=== PATIENT | female | born 1955 | race Caucasian/White ===

== ENCOUNTER → 2023-05-10 13:13 | Outpatient (CLI) | payer OTHER, SELFPAY ==
--- NOTE | 2023-05-10 13:16 | DI.RAD.S_ITS ---
PROCEDURE: XR ANKLE LT MIN 3V INDICATIONS: L ankle injury TECHNIQUE: 3 views of the ankle were acquired. COMPARISON: None. FINDINGS: Bones: There is a fracture of the lateral malleolus, at and below the syndesmosis. Soft tissues: Large tibiotalar joint effusion. Achilles tendon appears normal. IMPRESSION: Fracture of the medial malleolus. No unstable fracture features. Dictated by: Hong Arellano M.D. on 05/10/2023 at 14:48 Approved by: Hong Arellano M.D. on 05/10/2023 at 14:49
== END ==
PROVIDERS: Referring Provider Physician Assistant; Visit Provider Physician Assistant
DX: S82.62XA Displaced fracture of lateral malleolus of left fibula, initial encounter for closed fracture (principal); M25.572 Pain in left ankle and joints of left foot; X58.XXXA Exposure to other specified factors, initial encounter
CPT/HCPCS: 73610

== ENCOUNTER 2024-11-08 11:48 | Emergency (ER) | payer MEDICARE, OTHER, SELFPAY ==
[2024-11-08 12:08] VITALS: BP 186/86; PULSE 83; RESP 16; TEMP 36.4; O2SAT 98; BMI 23.1
--- NOTE | 2024-11-08 12:53 | DI.RAD.S_ITS ---
PROCEDURE: XR KNEE LT 3V INDICATIONS: swelling TECHNIQUE: 3 views of the knee were acquired. COMPARISON: None. FINDINGS: Bones: There is prior ACL reconstruction. Right knee alignment is anatomic. No fractures or dislocations. Moderate tricompartmental osteoarthritis is seen. No significant patellar subluxation. No suspicious bony lesions. Soft tissues: Moderate suprapatellar joint effusion. No suspicious soft tissue calcifications. IMPRESSION: Prior ACL reconstruction. Anatomic right knee alignment. No acute fracture or dislocation. Moderate tricompartmental osteoarthritis and moderate joint effusion. Dictated by: Natalio Olguin M.D. on 11/08/2024 at 12:19 Approved by: Natalio Olguin M.D. on 11/08/2024 at 12:20
--- NOTE | 2024-11-08 14:27 | ED_ITS ---
HPI - Extremity Injury (Lower) <Jennifer Cordero PA-C - Last Filed: 11/08/24 18:57> General Chief Complaint: Extremity Injury, Lower Stated Complaint: Bilateral Hip Pain, R Knee Pain Time Seen by Provider: 11/08/24 12:47 Source: patient Mode of arrival: Ambulatory History of Present Illness HPI Narrative: 69-year-old female here today for right knee pain and bilateral hip pain. States she has had the hip pain for several weeks but then 1 week ago her right knee started hurting a lot and has continued to get worse. She is normally very active and exercises or walks daily. She has been having difficulty sleeping due to the pain in her knee. She feels pain all the way around her knee but it is especially bothersome in the back of her knee and her upper calf. She recently had COVID around 1 month ago and she has concerns about a blood clot in her leg. She has no history of blood clots. She has had her ACL reconstructed on the right knee many years ago but otherwise does not have any chronic knee problems. States she has been taking ibuprofen 400 mg every 4 hours which does help somewhat but she needs to take it constantly for the pain. She has tried Voltaren gel in the past which did not help. She denies any fevers or chills. Pain is worse when trying to fully extend her knee. Related Data Home Medications ?Medication ?Instructions ?Recorded ?Confirmed ibuprofen 600 mg tablet 600 mg PO Q6H PRN 11/10/24 0 11/15/24 Previous Rx's ?Medication ?Instructions ?Recorded cefpodoxime 200 mg tablet 200 mg PO Q12H 10 days #20 t abs 11/14/24 oxycodone 5 mg tablet 5 mg PO Q6H PRN pain #120 ta bs 11/15/24 Allergies Allergy/AdvReac Type Severity Reaction Status Date / Time No Known Drug Allergies Allergy Unverified 11/15/24 15:40 Review of Systems <Jennifer Cordero PA-C - Last Filed: 11/08/24 18:57> Review of Systems ROS Unobtainable: All systems reviewed & are unremarkable except as noted in HPI and below Patient History <Jennifer Cordero PA-C - Last Filed: 11/08/24 18:57> Medical History (Updated 07/23/25 @ 15:51 by Liu Brown DO) Hyperalgesia of skin ACL tear Chronic right hip pain Surgical History Hx of right knee surgery Smoking Status: Former smoker Exam <Jennifer Cordero PA-C - Last Filed: 11/08/24 18:57> Narrative Exam Narrative: GENERAL: Well-developed, well-nourished, appears stated age. In no acute distress HEAD: Atraumatic. Normocephalic. EYES: Pupils equal round and reactive. Extraocular motions intact. No scleral icterus. No injection or drainage. ENT: Nose without bleeding, purulent drainage. Airway patent. NECK: Trachea midline. Non tender RESPIRATORY: Respiratory rate and effort normal EXTREMITIES: Right knee is visibly more swollen than the left but without obvious or palpable effusion. No warmth or erythema of the knee noted. No midline tenderness. Tender to posterior knee. No calf tenderness. No calf erythema, swelling, or warmth. Normal distal pulses. Normal neurovascular exam. Able to flex the knee and extend fully, but with obvious discomfort when extending. NEURO: AOx3. SKIN: No rash or erythema of visible areas Initial Vital Signs Initial Vital Signs: Vital Signs Temperature 97.5 F L 11/08/24 12:08 Pulse Rate 83 11/08/24 12:08 Respiratory Rate 16 11/08/24 12:08 Blood Pressure 186/86 H 11/08/24 12:08 Pulse Oximetry 98 11/08/24 12:08 Oxygen Delivery Method Room Air 11/08/24 12:08 <Dave Lino MD - Last Filed: 11/20/24 21:01> Initial Vital Signs Initial Vital Signs: Vital Signs Temperature 97.5 F L 11/08/24 12:08 Pulse Rate 83 11/08/24 12:08 Respiratory Rate 16 11/08/24 12:08 Blood Pressure 186/86 H 11/08/24 12:08 Pulse Oximetry 98 11/08/24 12:08 Oxygen Delivery Method Room Air 11/08/24 12:08 Course <Jennifer Cordero PA-C - Last Filed: 11/08/24 18:57> Orders Ordered: ED Orders 11/08/24 12:53 XR knee LT 3V Stat 11/08/24 15:10 US periph venous low extrem rt Stat Vital Signs Vital signs: Vital Signs - 8 hr 11/08/24 12:08 11/08/24 16:15 Temperature 97.5 F L Pulse Rate 83 75 Respiratory Rate 16 16 Blood Pressure 186/86 H 128/72 Pulse Oximetry 98 96 Oxygen Delivery Method Room Air <Dave Lino MD - Last Filed: 11/20/24 21:01> Orders Ordered: ED Orders 11/08/24 12:53 XR knee LT 3V Stat 11/08/24 15:10 US periph venous low extrem rt Stat Vital Signs Vital signs: Vital Signs - 8 hr 11/08/24 12:08 11/08/24 16:15 Temperature 97.5 F L Pulse Rate 83 75 Respiratory Rate 16 16 Blood Pressure 186/86 H 128/72 Pulse Oximetry 98 96 Oxygen Delivery Method Room Air MDM - Extremity Injury (Lower) <Jennifer Cordero PA-C - Last Filed: 11/08/24 18:57> Imaging Data Extremity x-ray #1: Radiologist's Impression: [address] [address] XRay Report Signed Patient: Tanna Lovell MR#: [id number] : 1955 Acct:[id number] Age/Sex: 69 / F Date of Service: 11/08/24 Loc: ED Accession Number: [id number] Procedure: XR knee LT 3V Ordering Provider: Jennifer Cordero PA-C PROCEDURE: XR KNEE LT 3V INDICATIONS: swelling TECHNIQUE: 3 views of the knee were acquired. COMPARISON: None. FINDINGS: Bones: There is prior ACL reconstruction. Right knee alignment is anatomic. No fractures or dislocations. Moderate tricompartmental osteoarthritis is seen. No significant patellar subluxation. No suspicious bony lesions. Soft tissues: Moderate suprapatellar joint effusion. No suspicious soft tissue calcifications. IMPRESSION: Prior ACL reconstruction. Anatomic right knee alignment. No acute fracture or dislocation. Moderate tricompartmental osteoarthritis and moderate joint effusion. Dictated by: Natalio Olguin M.D. on 11/08/2024 at 12:19 Approved by: Natalio Olguin M.D. on 11/08/2024 at 12:20 US - DVT: Radiologist's Impression: [address] [address] Ultrasound Report Signed Patient: Tanna Lovell MR#: [id number] : 1955 Acct:[id number] Age/Sex: 69 / F Date of Service: 11/08/24 Loc: ED Accession Number: [id number] Procedure: US periph venous low extrem rt Ordering Provider: Jennifer Cordero PA-C PROCEDURE: US PERIPH VENOUS LOW EXTREM RT INDICATIONS: R posterior knee/calf pain TECHNIQUE: Real-time imaging, as well as color and pulse Doppler interrogation, were performed of the lower extremity deep veins from the inguinal ligament to the popliteal fossa, with documentation of the visualized calf veins. COMPARISON: None. FINDINGS: The common femoral, femoral, popliteal, and the visualized calf veins are normally compressible, and free of intraluminal thrombus. Color and pulse Doppler demonstrate normal phasic intraluminal flow. There is normal augmentation response to distal compression maneuver. IMPRESSION: No findings of lower extremity deep venous thrombosis. Dictated by: Natalio Olguin M.D. on 11/08/2024 at 15:38 Approved by: Natalio Olguin M.D. on 11/08/2024 at 15:49 [facility] Narrative Medical decision making narrative: Multiple etiologies for patient's symptoms considered including, but not limited to: Knee sprain, ligament injury, osteoarthritis, septic joint, gout, tendinitis X-ray shows tricompartmental osteoarthritis and a moderate joint effusion. Patient does not have concerning symptoms for septic knee. She is able to flex the knee and there is no warmth or redness or obvious effusion. Patient had concerns about developing a clot after COVID and really wanted to rule this out so an ultrasound was done which was negative. She could be experiencing a severe flare of osteoarthritis or she may have another issue that would require further evaluation with an MRI. She does not have a PCP. I strongly advised she make an appointment with a new PCP and she can have the MRI ordered through them. In the meantime she may increase her ibuprofen to 600 mg every 6-8 hours, Tylenol in between doses, continue icing. Patient given a small prescription for Findings and discharge diagnosis discussed with patient/family followed by verbalization of understanding Return precautions discussed with patient/family whom verbalize understanding of diagnosis and plan Discharge Plan Departure Patient Disposition: Home Clinical Impression: Acute pain of right knee Instructions: DI for Knee Pain Activity Restrictions/Additional Instructions: Thank you for choosing us to care for you today. You were evaluated for your right knee pain today. Your knee x-ray shows pretty significant osteoarthritis in the right knee with associated swelling. You are likely experiencing a flare-up of your arthritis. Continue resting, elevating, icing, and taking ibuprofen 600 mg every 6-8 hours. You also had an ultrasound which ruled out a blood clot in the right leg. You were given a prescription for stronger pain medication to be taken only as needed at night. Please be advised that this will not be refilled as it is not a long-term pain medication. Please call to schedule an appointment with a PCP, as they will be able to manage your pain more chronically and can also order additional imaging if needed. Please follow up with us if you have an increase in your pain that makes it impossible to bend your knee or stand on your leg especially if there is a fever/chills as well. Prescriptions: No Action ibuprofen 600 mg tablet 600 mg PO Q6H PRN oxycodone 5 mg tablet 5 mg PO Q6H PRN (Reason: pain) Qty: 120 0RF Rx Instructions: EXEMPT cefpodoxime 200 mg tablet 200 mg PO Q12H 10 Days Qty: 20 0RF Rx Instructions: must administer with a meal/food Stand Alone Forms: Patient Portal/API ED Sign-out <Dave Lino MD - Last Filed: 11/20/24 21:01> Cosign ED Attending Fabiana Attestation: I was immediately available in the department for consultation. ?This documentation has been reviewed and I agree with assessment and plan. Supervised by Dave Lino MD
--- NOTE | 2024-11-08 15:10 | DI.US.S_ITS ---
PROCEDURE: US PERIPH VENOUS LOW EXTREM RT INDICATIONS: R posterior knee/calf pain TECHNIQUE: Real-time imaging, as well as color and pulse Doppler interrogation, were performed of the lower extremity deep veins from the inguinal ligament to the popliteal fossa, with documentation of the visualized calf veins. COMPARISON: None. FINDINGS: The common femoral, femoral, popliteal, and the visualized calf veins are normally compressible, and free of intraluminal thrombus. Color and pulse Doppler demonstrate normal phasic intraluminal flow. There is normal augmentation response to distal compression maneuver. IMPRESSION: No findings of lower extremity deep venous thrombosis. Dictated by: Natalio Olguin M.D. on 11/08/2024 at 15:38 Approved by: Natalio Olguin M.D. on 11/08/2024 at 15:49
[2024-11-08 16:15] VITALS: BP 128/72; PULSE 75; RESP 16; O2SAT 96
--- NOTE | 2024-11-08 17:12 | PC.NURSE ---
patient has swelling to medial right knee, no redness.
== END 2024-11-08 17:12 | disposition home or self-care (01) ==
PROVIDERS: Emergency Provider Physician Assistant
DX: M25.561 Pain in right knee (principal); M25.552 Pain in left hip; M25.551 Pain in right hip; Z98.890 Other specified postprocedural states
CPT/HCPCS: 73562; 93971; 99281; 99283

== ENCOUNTER → 2024-11-10 15:17 | Outpatient (CLI) | payer MEDICARE, SELFPAY ==
--- NOTE | 2024-11-10 15:23 | DI.RAD.S_ITS ---
PROCEDURE: XR HIP W PEL IF DONE BILAT 2V INDICATIONS: hip pain TECHNIQUE: AP pelvis with lateral view(s) of the bilateral hip(s). COMPARISON: None. FINDINGS: Bones: No fractures or dislocations. Moderate to severe degenerative change of the bilateral hips, right greater than left, includes joint space narrowing, marginal osteophytosis and acetabular and right femoral subchondral sclerosis. Pelvic ring appears intact. No suspicious bony lesions. Soft tissues: The visualized bowel gas pattern is normal. No suspicious soft tissue calcifications. IMPRESSION: Degenerative change of the bilateral hips, right greater than left, without evidence of acute bony abnormality. Dictated by: Ermias Rosario M.D. on 11/10/2024 at 22:33 Approved by: Ermias Rosario M.D. on 11/10/2024 at 22:36
== END ==
PROVIDERS: Family Provider Family Medicine; PCP Family Medicine; Referring Provider Family Medicine; Visit Provider Family Medicine
DX: M25.551 Pain in right hip (principal); G89.29 Other chronic pain; M25.561 Pain in right knee; Z98.890 Other specified postprocedural states
CPT/HCPCS: 73521

== ENCOUNTER 2024-11-14 10:33 | Emergency (ER) | payer OTHER, MEDICARE, SELFPAY ==
[2024-11-14 10:35] VITALS: BP 160/79; PULSE 88; RESP 17; TEMP 36.6; O2SAT 98; BMI 24.5
[2024-11-14 10:40] VITALS: O2SAT 98
[2024-11-14 10:41] VITALS: BP 160/79; PULSE 83; O2SAT 98
[2024-11-14 11:00] VITALS: PULSE 77; O2SAT 98
[2024-11-14 12:17] LABS: Add Manual Diff / Slide Review NO; Hematocrit 35.4 % (36-46); Hemoglobin 11.7 g/dL (12.0-16.0); Lymphocytes Absolute Auto 800 /uL (1100-4500); Mean Corpuscular HGB Conc 33.0 % (30-36); Mean Corpuscular Hemoglobin 27.3 PG (26-34); Mean Corpuscular Volume 82.7 fL (80-100); Platelet Count 686 X10^3/uL (150-400)
[2024-11-14 12:24] LABS: INR 1.1 (0.9-1.3); Prothrombin Time 12.0 SECONDS (9.4-12.5)
[2024-11-14 12:26] LABS: PTT Partial Thromboplastin Tim 33 SECONDS (25.1-36.5)
[2024-11-14 12:36] LABS: Alanine Aminotransferase 16 IU/L (<35); Albumin 3.5 g/dL (3.5-5.0); Albumin Globulin Ratio 1.0 (1.0-2.8); Alkaline Phosphatase 88 U/L (38-126); Blood Urea Nitrogen 19 mg/dL (7-17); Calcium 9.3 mg/dL (8.4-10.2); Carbon Dioxide 27 mmol/L (22-32); Chloride 102 mmol/L (98-107); Creatine Kinase 43 U/L (30-135); Estimated Glomerular Filt Rate > 60 mL/min (>60); Globulin 3.4 g/dL (1.7-4.1); Glucose 103 mg/dL (70-99); HEMOLYSIS < 15 (0-50); Lipase 51 U/L (23-300); Potassium 3.8 mmol/L (3.4-5.1); Sodium 138 mmol/L (137-145); Total Protein 6.9 g/dL (6.3-8.2)
[2024-11-14] MEDS: ACETAMINOPHEN 325 MG TABLET 975 MG PO (12:40)
[2024-11-14] MEDS: CYCLOBENZAPRINE 10 MG TABLET PO (12:41)
[2024-11-14] MEDS: KETOROLAC 30 MG/ML VIAL 15 MG IV (12:41)
[2024-11-14 13:00] LABS: Appearance Urine UA SL CLOUDY; Bilirubin Urine UA 1+ (NEGATIVE); Color Urine UA YELLOW; Glucose Urine UA NEGATIVE (Negative); Ketones Urine UA 1+ (NEGATIVE); Leukocyte Esterase Urine UA 1+ (NEGATIVE); Nitrite Urine UA POSITIVE (Negative); Occult Blood Urine UA NEGATIVE (Negative); Protein Urine UA TRACE (Negative); Specific Gravity Urine UA 1.010 (1.000-1.035); Urobilinogen Urine UA 1.0 E.U./dL (0.2)
--- NOTE | 2024-11-14 13:00 | DI.RAD.S_ITS ---
PROCEDURE: XR CHEST 2V INDICATIONS: generalized pain, elevated WBC TECHNIQUE: 2 views of the chest were acquired. COMPARISON: None. FINDINGS: Surgical changes and devices: None. Lungs and pleura: Lungs are clear. No pleural effusions or pneumothorax. Mediastinum: The cardiac contours are within normal limits. The aorta demonstrates calcification and tortuosity. Bones and chest wall: No suspicious bony abnormalities. Age-appropriate bony degenerative changes are seen. Mild levoconvex scoliotic curvature is noted. Soft tissues appear unremarkable. IMPRESSION: No focal infiltrates are seen. No significant plain film abnormality is seen for age. Dictated by: Kaden Jenkins M.D. on 11/14/2024 at 12:51 Approved by: Kaden Jenkins M.D. on 11/14/2024 at 12:52
[2024-11-14 13:01] LABS: pH Urine UA 6.0 (4.5-8.0)
[2024-11-14 13:08] LABS: Ictotest Urine Negative (Negative)
[2024-11-14 13:09] LABS: Culture Indicated Urine Specimen Cultured
[2024-11-14 14:22] LABS: TSH w/ Reflex to FT4 1.58 uIU/mL (0.47-4.68)
[2024-11-14 14:54] VITALS: BP 109/55; PULSE 73; RESP 16; O2SAT 96
[2024-11-14] MEDS: OXYCODONE/ACETAMINOPHEN 5/325 TABLET 1 TAB PO (15:02)
--- NOTE | 2024-11-14 15:38 | ED_ITS ---
HPI - Extremity Problem <Fiona Burk PA-C - Last Filed: 11/14/24 16:01> General Chief complaint: Extremity Problem,Nontraumatic Stated complaint: Severe pain in all Joints Time Seen by Provider: 11/14/24 10:35 Source: patient Mode of arrival: Wheelchair History of Present Illness HPI Narrative: Patient on Patient states that she was diagnosed with COVID about a month ago, following which she has suddenly developed acute myalgias in her proximal joints. Patient is complaining of the most pain around her shoulders and neck and her hips. Patient has a chronic right knee condition where she has had surgery to repairthe ACL. Patient is complaining of acute exacerbation of the right knee pain for several weeks now. No trauma. No fever, chills, chest pain, shortness of breath, nausea, vomiting, abdominal pain, lightheadedness, dizziness,syncope. Patient's current pain is severely affecting her ADLs, she has been holding in her urine for fear of having to move to the bathroom. Patient's is currently helping her ambulate. Patient is concerned that she might have developed a UTI as result. Patient underwent an MRI this morning which was ordered by her PCP. Related Data Home Medications ?Medication ?Instructions ?Recorded ?Confirmed ibuprofen 600 mg tablet 600 mg PO Q6H PRN 11/10/24 0 11/10/24 Previous Rx's ?Medication ?Instructions ?Recorded cefpodoxime 200 mg tablet 200 mg PO Q12H 10 days #20 t abs 11/14/24 oxycodone-acetaminophen 5 mg-325 1 tab PO Q4-6H PRN pa in #20 tabs 11/14/24 mg tablet (Percocet) Allergies Allergy/AdvReac Type Severity Reaction Status Date / Time No Known Drug Allergies Allergy Unverified 11/14/24 10:43 Review of Systems <Fiona Burk PA-C - Last Filed: 11/14/24 16:01> Constitutional Constitutional: Denies chills, Denies fatigue, Denies fever(s), Denies frequent falls, Denies lethargy and Denies weakness Eyes Eyes: Denies change in vision, Denies eye discharge, Denies irritation and Denies loss of vision ENT Ears, Nose, Mouth, and Throat: Denies change in voice, Denies dizziness, Reports neck pain, Denies sore throat and Denies throat swelling Cardiovascular Cardiovascular: Denies chest pain, Denies irregular heart rhythm, Denies lightheadedness, Denies palpitations, Denies dyspnea, Denies dyspnea on exertion and Denies orthopnea Respiratory Respiratory: Denies cough, Denies dyspnea, Denies dyspnea on exertion and Denies wheezing Gastrointestinal Gastrointestinal: Denies abdominal pain, Denies change in bowel habits, Denies diarrhea, Denies nausea and Denies vomiting Musculoskeletal Musculoskeletal: Reports myalgias, Reports arthralgias, Reports limited range of motion, Reports myalgias, Reports neck pain, Denies numbness and Reports stiffness Integumentary/Breasts Skin/Breast: Denies pruritus, Denies erythema, Denies rash and Denies wounds Neurologic Neurologic: Denies behavioral changes, Denies confusion, Denies dizziness, Denies frequent falls, Denies loss of vision, Denies numbness and Denies weakness Psychiatric Psychiatric: Denies anxiety, Denies behavioral changes, Denies confusion, Denies depression, Denies homicidal ideation and Denies suicidal ideation Endocrine Endocrine: Denies fatigue, Denies flushing and Denies palpitations Hematologic/Lymphatic Hematologic/Lymphatic: Denies easy bruising Allergic/Immunologic Allergic/Immunologic: Denies urticaria, Denies throat swelling and Denies wheezing Patient History <Fiona Burk PA-C - Last Filed: 11/14/24 16:01> Medical History Chronic right hip pain Surgical History Hx of right knee surgery Social History Smoking Status: Unknown if ever smoked Smoking Status: Unknown if ever smoked Exam <Fiona Burk PA-C - Last Filed: 11/14/24 16:01> Narrative Exam Narrative: Const General:?cooperative, healthy appearing and comfortable [facility] Head:?normal to inspection Ears:?hearing grossly normal bilaterally Nose:?external nose normal Face and sinus:?normal facial exam and sinuses nontender Mouth:?oral mucosae normal Throat:?posterior oropharynx normal Eyes General:?appearance normal, both eyes and all related structures Neck Neck:?normal visual inspection and no lymphadenopathy noted Resp Effort & Inspection:?normal respiratory effort Auscultation:?clear to auscultation bilaterally Cardio Rate:?regular rate Rhythm:?regular rhythm Musculoskeletal There is swelling of the right knee and tenderness to palpation. No numbness, tingling. Patient tender in the shoulders and hips. Neurovascularly intact Integumentary There is erythema and mild rash between the shoulder blades. Similar area of erythema on the chest Could be consistent with a shoulder sign, indicative of myositis. Area of scalp irritation the back of the head, close to the neck Neuro General:?patient alert, patient awake and patient oriented x3 Initial Vital Signs Initial Vital Signs: Vital Signs Temperature 97.9 F 11/14/24 10:35 Pulse Rate 88 11/14/24 10:35 Respiratory Rate 17 11/14/24 10:35 Blood Pressure 160/79 H 11/14/24 10:35 Pulse Oximetry 98 11/14/24 10:35 Oxygen Delivery Method Room Air 11/14/24 10:35 <Hugo Leonard MD - Last Filed: 11/14/24 19:04> Initial Vital Signs Initial Vital Signs: Vital Signs Temperature 97.9 F 11/14/24 10:35 Pulse Rate 88 11/14/24 10:35 Respiratory Rate 17 11/14/24 10:35 Blood Pressure 160/79 H 11/14/24 10:35 Pulse Oximetry 98 11/14/24 10:35 Oxygen Delivery Method Room Air 11/14/24 10:35 Course <Fiona Burk PA-C - Last Filed: 11/14/24 16:01> Orders Ordered: ED Orders 11/14/24 12:06 CBC Auto Diff [Complete Blood Count AUTO DIFF] Stat CK [Creatine Kinase] Stat CMP [Comprehensive Metabolic Panel] Stat CRP [C-Reactive Protein Quant] Stat ESR [Erythrocyte Sedimentation Rate] Stat LDH [Lactate Dehydrogenase] Stat Lipase Stat PT [Prothrombin Time INR] Stat PTT [PTT Partial Thromboplastin Ronaldo] Stat TSH w/ Reflex to FT4 Stat 11/14/24 12:44 Ictotest Urine Stat Urinalysis and Microscopic Stat Urine Culture Stat 11/14/24 13:00 CXR [XR chest 2V] Stat Discontinued Medications Acetaminophen (Acetaminophen 325 Mg Tablet) 975 mg PO NOW ONE Stop: 11/14/24 12:04 Last Admin: 11/14/24 12:40 Dose: 975 mg Documented By: TK Cyclobenzaprine HCl (Cyclobenzaprine 10 Mg Tablet) 10 mg PO NOW ONE Stop: 11/14/24 12:04 Last Admin: 11/14/24 12:41 Dose: 10 mg Documented By: TK Ceftriaxone Sodium 1,000 mg/ (Sodium Chloride) 100 mls @ 200 mls/hr IV NOW ONE Stop: 11/14/24 13:13 Last Infusion: 11/14/24 14:10 Dose: Infused Documented By: Admin: 11/14/24 13:37 Dose: 200 mls/hr Documented By: EUGENE Ketorolac Tromethamine (Ketorolac 30 Mg/Ml Vial) 15 mg IV NOW ONE Stop: 11/14/24 12:04 Last Admin: 11/14/24 12:41 Dose: 15 mg Documented By: TK Oxycodone/Acetaminophen (Oxycodone/Acetaminophen 5/325 Tablet) 1 tab PO NOW ONE Stop: 11/14/24 14:58 Last Admin: 11/14/24 15:02 Dose: 1 tab Documented By: EUGENE Vital Signs Vital signs: Vital Signs - 8 hr 11/14/24 14:54 Pulse Rate 73 Respiratory Rate 16 Blood Pressure 109/55 L Pulse Oximetry 96 Oxygen Delivery Method Room Air <Hugo Leonard MD - Last Filed: 11/14/24 19:04> Orders Ordered: ED Orders 11/14/24 12:06 CBC Auto Diff [Complete Blood Count AUTO DIFF] Stat CK [Creatine Kinase] Stat CMP [Comprehensive Metabolic Panel] Stat CRP [C-Reactive Protein Quant] Stat ESR [Erythrocyte Sedimentation Rate] Stat LDH [Lactate Dehydrogenase] Stat Lipase Stat PT [Prothrombin Time INR] Stat PTT [PTT Partial Thromboplastin Ronaldo] Stat TSH w/ Reflex to FT4 Stat 11/14/24 12:44 Ictotest Urine Stat Urinalysis and Microscopic Stat Urine Culture Stat 11/14/24 13:00 CXR [XR chest 2V] Stat Discontinued Medications Acetaminophen (Acetaminophen 325 Mg Tablet) 975 mg PO NOW ONE Stop: 11/14/24 12:04 Last Admin: 11/14/24 12:40 Dose: 975 mg Documented By: TK Cyclobenzaprine HCl (Cyclobenzaprine 10 Mg Tablet) 10 mg PO NOW ONE Stop: 11/14/24 12:04 Last Admin: 11/14/24 12:41 Dose: 10 mg Documented By: TK Ceftriaxone Sodium 1,000 mg/ (Sodium Chloride) 100 mls @ 200 mls/hr IV NOW ONE Stop: 11/14/24 13:13 Last Infusion: 11/14/24 14:10 Dose: Infused Documented By: Admin: 11/14/24 13:37 Dose: 200 mls/hr Documented By: EUGENE Ketorolac Tromethamine (Ketorolac 30 Mg/Ml Vial) 15 mg IV NOW ONE Stop: 11/14/24 12:04 Last Admin: 11/14/24 12:41 Dose: 15 mg Documented By: TK Oxycodone/Acetaminophen (Oxycodone/Acetaminophen 5/325 Tablet) 1 tab PO NOW ONE Stop: 11/14/24 14:58 Last Admin: 11/14/24 15:02 Dose: 1 tab Documented By: EUGENE Vital Signs Vital signs: Vital Signs - 8 hr 11/14/24 14:54 Pulse Rate 73 Respiratory Rate 16 Blood Pressure 109/55 L Pulse Oximetry 96 Oxygen Delivery Method Room Air MDM - Extremity (Nontraumatic) <Fiona Burk PA-C - Last Filed: 11/14/24 16:01> Lab Data 11/14/24 12:06 11/14/24 12:06 Labs: Lab Results 11/14/24 11/14/24 Range/Units 12:06 12:44 WBC 16.4 H (4.5-11.0) X10^3/uL RBC 4.28 (4.0-5.2) X10^6/uL Hgb 11.7 L (12.0-16.0) g/dL Hct 35.4 L (36-46) % MCV 82.7 (80-100) fL MCH 27.3 (26-34) PG MCHC 33.0 (30-36) % RDW 14.0 (11.6-14.8) % Plt Count 686 H (150-400) X10^3/uL Neut % (Auto) 85.7 H (50-75) % Lymph % (Auto) 5.1 L (25-40) % [place] % (Auto) 8.0 (3-14) % Eos % (Auto) 0.8 L (2-4) % Baso % (Auto) 0.4 (0-2) % Neut # (Auto) 78266 H (0996-0659) /uL Lymph # (Auto) 800 L (3284-0236) /uL [place]om[place] # (Auto) 1300 H (0-900) /uL Eos # (Auto) 100 (0-450) /uL Baso # (Auto) 100 (0-100) /uL ESR 70 H (0-20) MM/HR PT 12.0 (9.4-12.5) SECONDS INR 1.1 (0.9-1.3) APTT 33 (25.1-36.5) SECONDS Sodium 138 (137-145) mmol/L Potassium 3.8 (3.4-5.1) mmol/L Chloride 102 (98-107) mmol/L Carbon Dioxide 27 (22-32) mmol/L BUN 19 H (7-17) mg/dL Creatinine 0.89 (0.52-1.04) mg/dL Estimated GFR > 60 (>60) mL/min BUN/Creatinine Ratio 21.3 (6-22) Glucose 103 H (70-99) mg/dL Calcium 9.3 (8.4-10.2) mg/dL Total Bilirubin 0.4 (0.2-1.3) mg/dL AST 23 (14-36) IU/L ALT 16 (<35) IU/L Alkaline Phosphatase 88 (38-126) U/L Lactate Dehydrogenase 167 (120-246) U/L Total Creatine Kinase 43 (30-135) U/L C-Reactive Protein 16.7 H (<1.0) mg/dL Total Protein 6.9 (6.3-8.2) g/dL Albumin 3.5 (3.5-5.0) g/dL Globulin 3.4 (1.7-4.1) g/dL Albumin/Globulin Ratio 1.0 (1.0-2.8) Lipase 51 (23-300) U/L TSH 1.58 (0.47-4.68) uIU/mL Urine Color Yellow Urine Appearance Sl cloudy Urine pH 6.0 (4.5-8.0) Ur Specific [place] 1.010 (1.000-1.035) Urine Protein Trace H (Negative) Urine Glucose (UA) Negative (Negative) g/dL Urine Ketones 1+ H (NEGATIVE) Urine Occult Blood Negative (Negative) Urine Nitrate Positive H (Negative) Urine Bilirubin 1+ H (NEGATIVE) Ur Bilirubin Confirm Negative (Negative) Urine Urobilinogen 1.0 (0.2) E.U./dL Ur Leukocyte Esterase 1+ H (NEGATIVE) Urine RBC None seen (0-5/HPF) Urine WBC 5-10/hpf H (0-5/HPF) Ur Squamous Epith Cells 0-1 /hpf (0-5/HPF) Urine Bacteria Moderate (10-30) H (None) Ur Culture Indicated? Specimen cultured Vol Urine Centrifuged 10ml (spun) MDM Narrative Medical decision making narrative: Patient on Patient states that she was diagnosed with COVID about a month ago, following which she has suddenly developed acute myalgias in her proximal joints. Radiology called to do a stat read on the knee MRI. Patient's history and physical exam is most pertinent for a autoimmune etiology versus musculoskeletal sprain/strain versus UTI versus other. Will obtain labs, ESR, CRP, LDH, TSH, chest x-ray, UA. Knee MRI shows ACL reconstruction torn, moderate suspected sprain of the PCL and collateral ligaments, macerated meniscus. Patient has a ortho appointment coming up with her ortho specialist for the knee. She agrees to keep that appointment. Patient was given Toradol, Tylenol, Flexeril for pain in the ED with good results. Chest x-ray with no focal infiltrates or other acute findings. WBC elevated to 16.4. Platelet elevated to 686. ESR elevated to 70. CRP elevated to 16.7. Urine is positive for UTI. Patient given a dose of IV Rocephin in the ED. prescription for antibiotics sent to the pharmacy. Elevated WBC and platelets could indicate autoimmune etiology versus elevated white count due to the UTI. Discussed findings with patient regarding UTI, autoimmune etiology. Patient given a dose of Percocet and prescription given for the next few days. Patient has a PCP appointment with Dr. Brown tomorrow morning. Patient agrees to follow-up regarding further workup for the abnormal labs. ED return precautions were discussed with patient. Patient verbalized understanding. Medical records reviewed: Yes <Hugo Leonard MD - Last Filed: 11/14/24 19:04> Lab Data Labs: Lab Results 11/14/24 11/14/24 Range/Units 12:06 12:44 WBC 16.4 H (4.5-11.0) X10^3/uL RBC 4.28 (4.0-5.2) X10^6/uL Hgb 11.7 L (12.0-16.0) g/dL Hct 35.4 L (36-46) % MCV 82.7 (80-100) fL MCH 27.3 (26-34) PG MCHC 33.0 (30-36) % RDW 14.0 (11.6-14.8) % Plt Count 686 H (150-400) X10^3/uL Neut % (Auto) 85.7 H (50-75) % Lymph % (Auto) 5.1 L (25-40) % Toombs % (Auto) 8.0 (3-14) % Eos % (Auto) 0.8 L (2-4) % Baso % (Auto) 0.4 (0-2) % Neut # (Auto) 72896 H (0529-0202) /uL Lymph # (Auto) 800 L (3788-4934) /uL [place]ombs # (Auto) 1300 H (0-900) /uL Eos # (Auto) 100 (0-450) /uL Baso # (Auto) 100 (0-100) /uL ESR 70 H (0-20) MM/HR PT 12.0 (9.4-12.5) SECONDS INR 1.1 (0.9-1.3) APTT 33 (25.1-36.5) SECONDS Sodium 138 (137-145) mmol/L Potassium 3.8 (3.4-5.1) mmol/L Chloride 102 (98-107) mmol/L Carbon Dioxide 27 (22-32) mmol/L BUN 19 H (7-17) mg/dL Creatinine 0.89 (0.52-1.04) mg/dL Estimated GFR > 60 (>60) mL/min BUN/Creatinine Ratio 21.3 (6-22) Glucose 103 H (70-99) mg/dL Calcium 9.3 (8.4-10.2) mg/dL Total Bilirubin 0.4 (0.2-1.3) mg/dL AST 23 (14-36) IU/L ALT 16 (<35) IU/L Alkaline Phosphatase 88 (38-126) U/L Lactate Dehydrogenase 167 (120-246) U/L Total Creatine Kinase 43 (30-135) U/L C-Reactive Protein 16.7 H (<1.0) mg/dL Total Protein 6.9 (6.3-8.2) g/dL Albumin 3.5 (3.5-5.0) g/dL Globulin 3.4 (1.7-4.1) g/dL Albumin/Globulin Ratio 1.0 (1.0-2.8) Lipase 51 (23-300) U/L TSH 1.58 (0.47-4.68) uIU/mL Urine Color Yellow Urine Appearance Sl cloudy Urine pH 6.0 (4.5-8.0) Ur Specific [place] 1.010 (1.000-1.035) Urine Protein Trace H (Negative) Urine Glucose (UA) Negative (Negative) g/dL Urine Ketones 1+ H (NEGATIVE) Urine Occult Blood Negative (Negative) Urine Nitrate Positive H (Negative) Urine Bilirubin 1+ H (NEGATIVE) Ur Bilirubin Confirm Negative (Negative) Urine Urobilinogen 1.0 (0.2) E.U./dL Ur Leukocyte Esterase 1+ H (NEGATIVE) Urine RBC None seen (0-5/HPF) Urine WBC 5-10/hpf H (0-5/HPF) Ur Squamous Epith Cells 0-1 /hpf (0-5/HPF) Urine Bacteria Moderate (10-30) H (None) Ur Culture Indicated? Specimen cultured Vol Urine Centrifuged 10ml (spun) MDM Narrative Medical decision making narrative: Patient on Patient states that she was diagnosed with COVID about a month ago, following which she has suddenly developed acute myalgias in her proximal joints. Radiology called to do a stat read on the knee MRI. Patient's history and physical exam is most pertinent for a autoimmune etiology versus musculoskeletal sprain/strain versus UTI versus other. Will obtain labs, ESR, CRP, LDH, TSH, chest x-ray, UA. Knee MRI shows ACL reconstruction torn, moderate suspected sprain of the PCL and collateral ligaments, macerated meniscus. Patient has a ortho appointment coming up with her ortho specialist for the knee. She agrees to keep that appointment. Patient was given Toradol, Tylenol, Flexeril for pain in the ED with good results. Chest x-ray with no focal infiltrates or other acute findings. WBC elevated to 16.4. Platelet elevated to 686. ESR elevated to 70. CRP elevated to 16.7. Urine is positive for UTI. Patient given a dose of IV Rocephin in the ED. prescription for antibiotics sent to the pharmacy. Elevated WBC and platelets could indicate autoimmune etiology versus elevated white count due to the UTI. Discussed findings with patient regarding UTI, autoimmune etiology. Patient given a dose of Percocet and prescription given for the next few days. Patient has a PCP appointment with Dr. Brown tomorrow morning. Patient agrees to follow-up regarding further workup for the abnormal labs. ED return precautions were discussed with patient. Patient verbalized understanding. Medical records reviewed: Yes I was available for consult but did not actually see the patient. Discharge Plan Departure Patient Disposition: Home Clinical Impression: Muscle pain UTI (urinary tract infection) Qualifiers: Urinary tract infection type: acute cystitis Hematuria presence: without hematuria Qualified Code(s): N30.00 - Acute cystitis without hematuria Instructions: DI for Urinary Tract Infection (UTI) Activity Restrictions/Additional Instructions: You were evaluated in the emergency department today for muscle pain and possible UTI. Your urine is positive for a urinary tract infection. You were given a 1st IV dose of antibiotics in the ED today. A prescription for oral antibiotics to take over the next several days has been sent to [facility] in [place]. There were a few abnormalities in your lab values today including an elevated WBC, inflammatory markers, platelets. It is recommended that you follow-up with your PCP Dr. Brown for further evaluation of these abnormalities, including further workup for autoimmune conditions such as myositis. There appears to be injuries to the right ACL and some other ligaments as well as the meniscus in your right knee. It is reassuring that you have an appointment with your ortho specialist. Please see your ortho specialist as soon as possible for further evaluation. Return to the ED if you have worsening symptoms. Prescriptions: New oxycodone-acetaminophen [Percocet] 5-325 mg tablet 1 tab PO Q4-6H PRN (Reason: pain) Qty: 20 0RF cefpodoxime 200 mg tablet 200 mg PO Q12H 10 Days Qty: 20 0RF Rx Instructions: must administer with a meal/food No Action ibuprofen 600 mg tablet 600 mg PO Q6H PRN Referrals: Liu Brown DO [Primary Care Provider, Family Practice] Stand Alone Forms: Patient Portal/API
== END 2024-11-14 15:12 | disposition home or self-care (01) ==
PROVIDERS: Emergency Provider Student in an Organized Health Care Education/Training Program; Family Provider Family Medicine; PCP Family Medicine
DX: N30.00 Acute cystitis without hematuria (principal); M79.10 Myalgia, unspecified site; M25.552 Pain in left hip; M25.551 Pain in right hip; M25.512 Pain in left shoulder; M25.511 Pain in right shoulder; M25.59 Pain in other specified joint
CPT/HCPCS: 36415; 71046; 73721; 80053; 81001; 82550; 83615; 83690; 84443; 85025; 85610; 85651; 85730; 86140; 87077; 87086; 87186; 96365; 96375; 99284; J0696; J1885